=== PATIENT | female | born 1985 | race Two or more races ===

== ENCOUNTER 2017-07-14 13:00 | Outpatient (CLI) | payer OTHER | END 2017-07-14 23:59 | disposition home or self-care (01) | LOC: WOU 13:00 | PROVIDERS: ATTEND Podiatrist Foot & Ankle Surgery | DX: L60.1 Onycholysis (principal); L03.032 Cellulitis of left toe | CPT/HCPCS: 99205; A6402; G0463 ==

== ENCOUNTER 2017-07-25 14:26 | Outpatient (CLI) | payer OTHER | END 2017-07-25 23:59 | disposition home or self-care (01) | LOC: WOU 14:26 | PROVIDERS: ATTEND Podiatrist Foot & Ankle Surgery | DX: L60.0 Ingrowing nail (principal); R60.0 Localized edema | CPT/HCPCS: 11730; A6402; J3490 ==

== ENCOUNTER 2017-08-08 13:56 | Outpatient (CLI) | payer OTHER | END 2017-08-08 23:59 | disposition home or self-care (01) | DX: R60.0 Localized edema (principal); G89.18 Other acute postprocedural pain | CPT/HCPCS: 99213; A6402 ==